=== PATIENT | female | born 1985 | race Hispanic/Latino ===

== ENCOUNTER → 2024-09-19 | Day surgery (SDC) | payer OTHER ==
[~2024-09-19] MED LIST: LACTATED RINGER'S 1,000 ML ONE; LIDOCAINE HCL 2% LOCAL INJ 5 ML SDV VIAL INJ ONE; MIDAZOLAM HCL 2 MG/2 ML VIAL ONE; PROPOFOL IV EMULSION 10 MG/ML 20 ML VIAL ONE
[2024-09-19 15:08] VITALS: TEMP 97.3
[2024-09-19 15:55] VITALS: BP 102/58; PULSE 57; RESP 16; O2SAT 99
== END | disposition home or self-care (01) ==
LOC: OR 12:30
PROVIDERS: ATTEND Internal Medicine Gastroenterology
DX: K52.9 Noninfective gastroenteritis and colitis, unspecified (principal); K57.30 Diverticulosis of large intestine without perforation or abscess without bleeding; R19.8 Other specified symptoms and signs involving the digestive system and abdomen; K64.8 Other hemorrhoids; Z79.1 Long term (current) use of non-steroidal anti-inflammatories (NSAID)
CPT/HCPCS: 45380; 81025; J2003; J2250; J2704; J7121